=== PATIENT | male | born 1965 | race African-American/Black ===

== ENCOUNTER → 2019-03-21 | Outpatient (CLI) | payer OTHER ==
[~2019-03-21] MED LIST: CIPRO500 MG PO; CLARITIN10 MG PO; FLEXERIL5 MG PO; HYDR25T PO; HYDROCODONE BIT1 T11 PO; LISINOPRIL20 MG PO; MEDROL DOSEPAK4 MG PO; PEN-VK500 MG PO; PERCOCET 325 MG1 TA2 PO; PERCOCET 325 MG1 TA6 PO; PREDNICOT10 MG PO; PREDNICOT20 MG PO; PRINIVIL10 MG PO; SEPTRA DS 800 M1 TAB PO; TRAMADOL HCL50 MG PO; ULTRAM50 MG PO; VICO75300 PO; ZOFRAN ODT4 MG SL; Zofran4 MG PO
[2019-03-21 14:37] LABS: HEMOGLOBIN 13.1 g/dl (14.0-18.0); MEAN CELL VOLUME 95.7 fl (80.0-94.0); MEAN CORPUSCULAR HGB 31.3 pg (27.0-31.0); MEAN CORPUSCULAR HGB CONC 32.8 g/dl (33.0-37.0); RED BLOOD COUNT 4.18 10*6/uL (4.50-5.90)
[2019-03-21 15:15] LABS: ALBUMIN 3.6 gm/dl (3.1-4.5); ALKALINE PHOSPHATASE 86 U/L (45-117); BUN 10 mg/dl (7-24); CHLORIDE 107 mmol/L (98-107); CHOLESTEROL 157 mg/dL (<200); CREATININE 0.91 mg/dL (0.70-1.30); HDL CHOLESTEROL 39 mg/dl (40-60); LDL CHOLESTEROL 91 mg/dL (9-159); POTASSIUM 3.2 mmol/L (3.5-5.1); SGOT/AST 33 IU/L (3-35); SGPT/ALT 62 U/L (12-78); SODIUM 140 mmol/L (136-145); TRIGLYCERIDES 133 mg/dl (<150); VLDL CHOLESTEROL 27 mg/dL (6-40)
== END | disposition home or self-care (01) ==
LOC: LAB 14:18
PROVIDERS: Family Medicine
DX: M47.816 Spondylosis without myelopathy or radiculopathy, lumbar region (principal); E55.9 Vitamin D deficiency, unspecified; E78.00 Pure hypercholesterolemia, unspecified; R53.83 Other fatigue; M19.90 Unspecified osteoarthritis, unspecified site; R63.5 Abnormal weight gain

== ENCOUNTER → 2019-04-03 | Outpatient (CLI) | payer OTHER | END | disposition home or self-care (01) | LOC: RAD 12:58 | DX: M16.0 Bilateral primary osteoarthritis of hip (principal) ==

== ENCOUNTER 2019-11-10 13:14 | Emergency (ER) | payer OTHER ==
[~2019-11-10] VITALS: Ht 193 cm; Wt 142.9 kg
[2019-11-10 13:57] LABS: BASO % 0.4 % (0.0-1.0); EOS # 0.1 10*3/uL (0.0-0.4); EOS % 0.7 % (1.0-4.0); HEMATOCRIT 42.4 % (42.0-52.0); LYMPH # 2.4 10*3/uL (1.3-4.4); MEAN CELL VOLUME 94.2 fl (80.0-94.0); MEAN CORPUSCULAR HGB 31.1 pg (27.0-31.0); MONO # 0.6 10*3/uL (0.1-1.0); MONO % 7.9 % (3.0-9.0); NEUT # 4.1 10*3/uL (2.3-7.9); NEUT % 57.7 % (47.0-73.0); PLATELET COUNT AUTOMATED 295 10*3/uL (130-400); RED CELL DISTRI WIDTH 11.6 % (0-14.5); WHITE BLOOD COUNT 7.2 10*3/uL (4.8-10.8)
[2019-11-10 14:13] LABS: ALBUMIN 3.7 gm/dl (3.1-4.5); ALKALINE PHOSPHATASE 103 U/L (45-117); BUN 9 mg/dl (7-24); CHLORIDE 106 mmol/L (98-107); LIPASE 64 U/L (73-393); POTASSIUM 3.7 mmol/L (3.5-5.1); SGOT/AST 29 IU/L (3-35); SGPT/ALT 57 U/L (12-78); SODIUM 139 mmol/L (136-145); TOTAL PROTEIN 8.1 gm/dL (6.4-8.2); TROPONIN I 0.016 ng/ml (<0.045)
[2019-11-10 14:16] LABS: ACT PARTIAL THROMBO TIME 31.6 SECONDS (20.0-32.1)
== END 2019-11-10 16:52 | disposition short-term general hospital (02) ==
LOC: ED 13:14
PROVIDERS: Emergency Medicine
DX: I63.9 Cerebral infarction, unspecified (principal); I10 Essential (primary) hypertension; M19.90 Unspecified osteoarthritis, unspecified site; Z88.8 Allergy status to other drugs, medicaments and biological substances; Z79.899 Other long term (current) drug therapy

== ENCOUNTER → 2019-12-12 | Outpatient (CLI) | payer OTHER ==
[2019-12-12 13:07] LABS: BASO # 0.1 10*3/uL (0.0-0.1); BASO % 0.6 % (0.0-1.0); EOS # 0.1 10*3/uL (0.0-0.4); EOS % 1.4 % (1.0-4.0); HEMATOCRIT 37.3 % (42.0-52.0); LYMPH # 2.5 10*3/uL (1.3-4.4); LYMPH % 30.9 % (27.0-41.0); MEAN CELL VOLUME 92.6 fl (80.0-94.0); MEAN CORPUSCULAR HGB 31.5 pg (27.0-31.0); MEAN PLATELET VOLUME 9.7 fl (9.6-12.3); MONO # 0.9 10*3/uL (0.1-1.0); MONO % 11.3 % (3.0-9.0); NEUT # 4.4 10*3/uL (2.3-7.9); NEUT % 55.5 % (47.0-73.0); PLATELET COUNT AUTOMATED 293 10*3/uL (130-400); RED BLOOD COUNT 4.03 10*6/uL (4.50-5.90); RED CELL DISTRI WIDTH 11.4 % (0-14.5); WHITE BLOOD COUNT 7.9 10*3/uL (4.8-10.8)
[2019-12-12 13:34] LABS: ALBUMIN 3.5 gm/dl (3.1-4.5); ALKALINE PHOSPHATASE 102 U/L (45-117); BUN 11 mg/dl (7-24); CHLORIDE 102 mmol/L (98-107); CHOLESTEROL 96 mg/dL (<200); CREATININE 0.95 mg/dL (0.70-1.30); HDL CHOLESTEROL 35 mg/dl (40-60); LDL CHOLESTEROL 41 mg/dL (9-159); SGOT/AST 32 IU/L (3-35); SGPT/ALT 65 U/L (12-78); SODIUM 139 mmol/L (136-145); TOTAL PROTEIN 8.3 gm/dL (6.4-8.2); TRIGLYCERIDES 102 mg/dl (<150); VLDL CHOLESTEROL 20 mg/dL (6-40)
== END | disposition home or self-care (01) ==
LOC: LAB 12:49
PROVIDERS: Family Medicine
DX: I63.9 Cerebral infarction, unspecified (principal); E03.9 Hypothyroidism, unspecified; E78.00 Pure hypercholesterolemia, unspecified

== ENCOUNTER → 2020-01-23 | Outpatient (CLI) | payer OTHER ==
[2020-01-23 14:04] LABS: ALBUMIN 3.6 gm/dl (3.1-4.5); ALKALINE PHOSPHATASE 96 U/L (45-117); BUN 9 mg/dl (7-24); CHLORIDE 104 mmol/L (98-107); CHOLESTEROL 92 mg/dL (<200); CPK 173 U/L (39-308); HDL CHOLESTEROL 43 mg/dl (40-60); HEMATOCRIT 37.6 % (42.0-52.0); LDL CHOLESTEROL 34 mg/dL (9-159); MEAN CELL VOLUME 93.1 fl (80.0-94.0); MEAN CORPUSCULAR HGB 30.7 pg (27.0-31.0); MEAN PLATELET VOLUME 10.6 fl (9.6-12.3); RED BLOOD COUNT 4.04 10*6/uL (4.50-5.90); RED CELL DISTRI WIDTH 11.3 % (0-14.5); SGOT/AST 36 IU/L (3-35); SGPT/ALT 51 U/L (12-78); SODIUM 138 mmol/L (136-145); TOTAL PROTEIN 8.4 gm/dL (6.4-8.2); TRIGLYCERIDES 75 mg/dl (<150); VLDL CHOLESTEROL 15 mg/dL (6-40)
[2020-01-23 14:08] LABS: POTASSIUM 3.5 mmol/L (3.5-5.1)
== END | disposition home or self-care (01) ==
LOC: LAB 12:54
PROVIDERS: Family Medicine
DX: E78.00 Pure hypercholesterolemia, unspecified (principal); E55.9 Vitamin D deficiency, unspecified; I10 Essential (primary) hypertension

== ENCOUNTER → 2020-05-09 | Outpatient (CLI) | payer OTHER ==
[~2020-05-09] MED LIST changes: +CYCLOBENZAPRINE5 M3 PO
[2020-05-09 11:54] LABS: HEMATOCRIT 41.8 % (42.0-52.0); MEAN CELL VOLUME 94.6 fl (80.0-94.0); MEAN CORPUSCULAR HGB CONC 32.8 g/dl (33.0-37.0); MEAN PLATELET VOLUME 9.7 fl (9.6-12.3); RED BLOOD COUNT 4.42 10*6/uL (4.50-5.90); RED CELL DISTRI WIDTH 11.4 % (0-14.5); WHITE BLOOD COUNT 6.5 10*3/uL (4.8-10.8)
[2020-05-09 12:08] LABS: ALBUMIN 3.7 gm/dl (3.1-4.5); ALKALINE PHOSPHATASE 75 U/L (45-117); BUN 8 mg/dl (7-24); CHLORIDE 104 mmol/L (98-107); CHOLESTEROL 109 mg/dL (<200); HDL CHOLESTEROL 47 mg/dl (40-60); LDL CHOLESTEROL 38 mg/dL (9-159); POTASSIUM 3.2 mmol/L (3.5-5.1); SGOT/AST 27 IU/L (3-35); SGPT/ALT 45 U/L (12-78); SODIUM 140 mmol/L (136-145); TRIGLYCERIDES 122 mg/dl (<150); VLDL CHOLESTEROL 24 mg/dL (6-40)
== END | disposition home or self-care (01) ==
LOC: LAB 11:32
PROVIDERS: ATTEND Family Medicine
DX: E55.9 Vitamin D deficiency, unspecified (principal); I10 Essential (primary) hypertension; R53.83 Other fatigue; Z79.899 Other long term (current) drug therapy

== ENCOUNTER → 2020-05-31 | Outpatient (CLI) | payer OTHER | END | disposition home or self-care (01) | LOC: LAB 14:22 | PROVIDERS: ATTEND Family Medicine | DX: K52.9 Noninfective gastroenteritis and colitis, unspecified (principal) ==

== ENCOUNTER → 2020-06-07 | Outpatient (CLI) | payer OTHER | END | disposition home or self-care (01) | LOC: RAD 11:51 | PROVIDERS: ATTEND Family Medicine | DX: M19.011 Primary osteoarthritis, right shoulder (principal); M47.812 Spondylosis without myelopathy or radiculopathy, cervical region ==

== ENCOUNTER → 2020-06-14 | Outpatient (CLI) | payer OTHER ==
[2020-06-14 11:50] LABS: BASO % 0.5 % (0.0-1.0); EOS # 0.1 10*3/uL (0.0-0.4); EOS % 1.6 % (1.0-4.0); HEMATOCRIT 41.3 % (42.0-52.0); LYMPH # 2.6 10*3/uL (1.3-4.4); LYMPH % 41.1 % (27.0-41.0); MEAN CELL VOLUME 95.8 fl (80.0-94.0); MEAN CORPUSCULAR HGB 31.6 pg (27.0-31.0); MEAN CORPUSCULAR HGB CONC 32.9 g/dl (33.0-37.0); MEAN PLATELET VOLUME 9.9 fl (9.6-12.3); MONO # 0.5 10*3/uL (0.1-1.0); MONO % 7.4 % (3.0-9.0); NEUT # 3.1 10*3/uL (2.3-7.9); NEUT % 49.1 % (47.0-73.0); PLATELET COUNT AUTOMATED 287 10*3/uL (130-400); RED BLOOD COUNT 4.31 10*6/uL (4.50-5.90); RED CELL DISTRI WIDTH 11.4 % (0-14.5); WHITE BLOOD COUNT 6.3 10*3/uL (4.8-10.8)
[2020-06-15 07:06] LABS: RHEUMATOID ARTHRITIS FACTOR <10.0 IU/mL (0.0-13.9)
[2020-06-15 08:08] LABS: HEP B CORE AB, IGM Negative (Negative); HEPATITIS B SURFACE AG Negative (Negative)
[2020-06-15 13:09] LABS: ANTI-RNP ANTIBODIES <0.2 AI (0.0-0.9)
[2020-06-15 22:10] LABS: CCP ANTIBODIES IGG/IGA 9 units (0-19)
[2020-06-16 10:01] LABS: HEPATITIS C VIRUS ANTIBODY >11.0 s/co (0.0-0.9)
[2020-06-17 08:08] LABS: DVVTMIXRFX CHG; LUPUS DRVVT 47.2 sec (0.0-47.0)
[2020-06-17 09:10] LABS: LUPUS REFLEX INTERPRETATION Comment: (.)
[2020-06-23 19:07] LABS: HLA-B27 ANTIGEN Negative (.)
== END | disposition home or self-care (01) ==
LOC: LAB 11:29
PROVIDERS: ATTEND Orthopaedic Surgery
DX: M16.0 Bilateral primary osteoarthritis of hip (principal); Z86.73 Personal history of transient ischemic attack (TIA), and cerebral infarction without residual deficits

== ENCOUNTER → 2020-07-01 | Outpatient (CLI) | payer OTHER ==
[2020-07-02 13:06] LABS: ANTI-DSDNA ANTIBODIES 3 IU/mL (0-9)
[2020-07-02 21:06] LABS: HEPATITIS C QUANTITATION 784000 IU/mL (.)
== END | disposition home or self-care (01) ==
LOC: LAB 12:18
PROVIDERS: ATTEND Family Medicine
DX: B18.2 Chronic viral hepatitis C (principal); R76.0 Raised antibody titer; Z72.51 High risk heterosexual behavior

== ENCOUNTER → 2020-07-17 | Outpatient (CLI) | payer OTHER | END | disposition home or self-care (01) | LOC: LAB 12:59 | PROVIDERS: ATTEND Family Medicine | DX: B19.20 Unspecified viral hepatitis C without hepatic coma (principal) ==

== ENCOUNTER 2020-07-21 16:26 | Emergency (ER) | payer OTHER ==
[~2020-07-21] VITALS: Wt 163.3 kg
[~2020-07-21 16:26] MED LIST changes: -CYCLOBENZAPRINE5 M3 PO
[2020-07-21] MEDS ORDERED: MEDROL DOSEPAK4 MG PO (19:07)
[2020-07-21] MEDS ORDERED: CYCLOBENZAPRINE5 M3 PO (19:07)
== END 2020-07-21 19:12 | disposition home or self-care (01) ==
LOC: ED 16:26
DX: M54.2 Cervicalgia (principal); I10 Essential (primary) hypertension; Z88.6 Allergy status to analgesic agent; Z79.899 Other long term (current) drug therapy; Z87.891 Personal history of nicotine dependence; V43.62XA Car passenger injured in collision with other type car in traffic accident, initial encounter; Y93.89 Activity, other specified; Y92.89 Other specified places as the place of occurrence of the external cause; Y99.8 Other external cause status

== ENCOUNTER → 2020-08-19 | Outpatient (CLI) | payer OTHER ==
[~2020-08-19] MED LIST changes: +CYCLOBENZAPRINE5 M3 PO; +ZOFRAN4 MG PO
[2020-08-19 13:22] LABS: BASO % 0.4 % (0.0-1.0); EOS # 0.1 10*3/uL (0.0-0.4); EOS % 1.6 % (1.0-4.0); HEMATOCRIT 43.4 % (42.0-52.0); LYMPH # 2.9 10*3/uL (1.3-4.4); LYMPH % 38.5 % (27.0-41.0); MEAN CORPUSCULAR HGB 32.3 pg (27.0-31.0); MEAN CORPUSCULAR HGB CONC 32.9 g/dl (33.0-37.0); MEAN PLATELET VOLUME 9.7 fl (9.6-12.3); MONO # 0.7 10*3/uL (0.1-1.0); MONO % 8.8 % (3.0-9.0); NEUT # 3.9 10*3/uL (2.3-7.9); NEUT % 50.6 % (47.0-73.0); PLATELET COUNT AUTOMATED 282 10*3/uL (130-400); RED BLOOD COUNT 4.43 10*6/uL (4.50-5.90); RED CELL DISTRI WIDTH 11.2 % (0-14.5); WHITE BLOOD COUNT 7.6 10*3/uL (4.8-10.8)
[2020-08-19 13:53] LABS: ALBUMIN 3.6 gm/dl (3.1-4.5); BILIRUBIN, DIRECT 0.2 mg/dL (0.0-0.2); TOTAL PROTEIN 7.7 gm/dL (6.4-8.2)
[2020-08-20 09:07] LABS: HEPATITIS A AB, TOTAL Positive (Negative); HEPATITIS B SURFACE AB Non Reactive (.); HEPATITIS B SURFACE AG Negative (Negative)
[2020-08-20 22:06] LABS: HCV LOG10 5.803 (.); HEPATITIS C QNT 635000 IU/mL (.)
== END | disposition home or self-care (01) ==
LOC: LAB 12:56
PROVIDERS: ATTEND Internal Medicine Gastroenterology
DX: R76.8 Other specified abnormal immunological findings in serum (principal)

== ENCOUNTER → 2020-09-07 | Outpatient (CLI) | payer OTHER ==
[2020-09-07 12:39] LABS: BILIRUBIN Negative (Negative); BLOOD Negative (Negative); CLARITY Clear (Clear); COLOR Yellow (Yellow); GLUCOSE Negative (Negative); KETONE Negative (Negative); LEUKO ESTERASE 1+ (Negative); NITRITE Negative (Negative); PH 5.5 (4.5-8.0)
[2020-09-07 12:43] LABS: BASO # 0.1 10*3/uL (0.0-0.1); BASO % 0.6 % (0.0-1.0); EOS # 0.1 10*3/uL (0.0-0.4); EOS % 0.9 % (1.0-4.0); LYMPH # 3.2 10*3/uL (1.3-4.4); LYMPH % 41.7 % (27.0-41.0); MEAN CELL VOLUME 98.6 fl (80.0-94.0); MEAN CORPUSCULAR HGB 32.6 pg (27.0-31.0); MEAN PLATELET VOLUME 10.2 fl (9.6-12.3); MONO # 0.6 10*3/uL (0.1-1.0); MONO % 7.7 % (3.0-9.0); NEUT # 3.8 10*3/uL (2.3-7.9); NEUT % 48.8 % (47.0-73.0); PLATELET COUNT AUTOMATED 294 10*3/uL (130-400); RED BLOOD COUNT 4.36 10*6/uL (4.50-5.90); RED CELL DISTRI WIDTH 11.4 % (0-14.5); WHITE BLOOD COUNT 7.7 10*3/uL (4.8-10.8)
[2020-09-07 13:06] LABS: ALBUMIN 3.9 gm/dl (3.1-4.5); ALKALINE PHOSPHATASE 77 U/L (45-117); BUN 10 mg/dl (7-24); CHLORIDE 107 mmol/L (98-107); CREATININE 0.86 mg/dL (0.70-1.30); POTASSIUM 3.6 mmol/L (3.5-5.1); SGOT/AST 37 IU/L (3-35); SGPT/ALT 64 U/L (12-78); SODIUM 143 mmol/L (136-145)
[2020-09-07 13:14] LABS: BACTERIA TRACE
[2020-09-07 13:40] LABS: ACT PARTIAL THROMBO TIME 27.6 SECONDS (20.0-32.1)
== END | disposition home or self-care (01) ==
LOC: LAB 12:15
PROVIDERS: ATTEND Orthopaedic Surgery
DX: Z01.818 Encounter for other preprocedural examination (principal); F32.9 Major depressive disorder, single episode, unspecified; M19.90 Unspecified osteoarthritis, unspecified site; M25.78 Osteophyte, vertebrae; I10 Essential (primary) hypertension; Z79.899 Other long term (current) drug therapy; Z86.73 Personal history of transient ischemic attack (TIA), and cerebral infarction without residual deficits

== ENCOUNTER 2020-10-30 20:39 | Emergency (ER) | payer OTHER ==
[~2020-10-30] VITALS: Ht 193 cm; Wt 136.1 kg
[~2020-10-30 20:39] MED LIST changes: -ZOFRAN4 MG PO
[2020-10-30] MEDS ORDERED: ZOFRAN4 MG PO (21:47)
== END 2020-10-30 22:04 | disposition home or self-care (01) ==
LOC: ED 20:39
DX: F11.23 Opioid dependence with withdrawal (principal); I10 Essential (primary) hypertension; Z88.8 Allergy status to other drugs, medicaments and biological substances; Z79.899 Other long term (current) drug therapy; Z98.890 Other specified postprocedural states

== ENCOUNTER → 2020-12-17 | Outpatient (CLI) | payer MEDICAID ==
[~2020-12-17] MED LIST changes: +ZOFRAN4 MG PO
[2020-12-17 10:34] LABS: HEMATOCRIT 38.3 % (42.0-52.0); MEAN CELL VOLUME 92.7 fl (80.0-94.0); MEAN CORPUSCULAR HGB 29.8 pg (27.0-31.0); MEAN CORPUSCULAR HGB CONC 32.1 g/dl (33.0-37.0); MEAN PLATELET VOLUME 10.2 fl (9.6-12.3); RED BLOOD COUNT 4.13 10*6/uL (4.50-5.90); RED CELL DISTRI WIDTH 12.6 % (0-14.5); WHITE BLOOD COUNT 6.3 10*3/uL (4.8-10.8)
[2020-12-17 11:15] LABS: ALBUMIN 3.4 gm/dl (3.1-4.5); ALKALINE PHOSPHATASE 97 U/L (45-117); BUN 9 mg/dl (7-24); CHLORIDE 103 mmol/L (98-107); CHOLESTEROL 93 mg/dL (<200); CREATININE 0.85 mg/dL (0.70-1.30); LDL CHOLESTEROL 40 mg/dL (9-159); POTASSIUM 3.3 mmol/L (3.5-5.1); SGOT/AST 34 IU/L (3-35); SGPT/ALT 55 U/L (12-78); SODIUM 139 mmol/L (136-145); TOTAL PROTEIN 7.9 gm/dL (6.4-8.2); TRIGLYCERIDES 79 mg/dl (<150)
== END | disposition home or self-care (01) ==
LOC: LAB 09:33
PROVIDERS: ATTEND Nurse Practitioner Family
DX: Z12.5 Encounter for screening for malignant neoplasm of prostate (principal); I10 Essential (primary) hypertension; E55.9 Vitamin D deficiency, unspecified; E78.00 Pure hypercholesterolemia, unspecified; Z79.899 Other long term (current) drug therapy

== ENCOUNTER → 2021-04-09 | Outpatient (CLI) | payer MEDICAID ==
[2021-04-09 12:52] LABS: HEMATOCRIT 42.2 % (42.0-52.0); MEAN CELL VOLUME 96.3 fl (80.0-94.0); MEAN CORPUSCULAR HGB 30.6 pg (27.0-31.0); MEAN CORPUSCULAR HGB CONC 31.8 g/dl (33.0-37.0); RED BLOOD COUNT 4.38 10*6/uL (4.50-5.90); WHITE BLOOD COUNT 5.9 10*3/uL (4.8-10.8)
[2021-04-09 13:10] LABS: ALBUMIN 3.5 gm/dl (3.1-4.5); ALKALINE PHOSPHATASE 87 U/L (45-117); BUN 9 mg/dl (7-24); CHLORIDE 104 mmol/L (98-107); CREATININE 0.76 mg/dL (0.70-1.30); POTASSIUM 3.5 mmol/L (3.5-5.1); SGOT/AST 30 IU/L (3-35); SGPT/ALT 45 U/L (12-78); SODIUM 141 mmol/L (136-145); TOTAL PROTEIN 8.4 gm/dL (6.4-8.2)
== END | disposition home or self-care (01) ==
LOC: LAB 11:45
PROVIDERS: ATTEND Family Medicine
DX: I63.9 Cerebral infarction, unspecified (principal)

== ENCOUNTER → 2021-07-04 | Outpatient (CLI) | payer MEDICAID ==
[2021-07-04 14:48] LABS: HEMATOCRIT 38.3 % (42.0-52.0); MEAN CELL VOLUME 94.3 fl (80.0-94.0); MEAN CORPUSCULAR HGB CONC 32.9 g/dl (33.0-37.0); MEAN PLATELET VOLUME 9.7 fl (9.6-12.3); RED BLOOD COUNT 4.06 10*6/uL (4.50-5.90); RED CELL DISTRI WIDTH 11.4 % (0-14.5); WHITE BLOOD COUNT 8.1 10*3/uL (4.8-10.8)
[2021-07-04 15:12] LABS: ALBUMIN 3.3 gm/dl (3.1-4.5); ALKALINE PHOSPHATASE 99 U/L (45-117); BUN 11 mg/dl (7-24); CHLORIDE 103 mmol/L (98-107); CHOLESTEROL 106 mg/dL (<200); CREATININE 0.99 mg/dL (0.70-1.30); LDL CHOLESTEROL 37 mg/dL (9-159); POTASSIUM 3.6 mmol/L (3.5-5.1); SGOT/AST 18 IU/L (3-35); SGPT/ALT 23 U/L (12-78); SODIUM 137 mmol/L (136-145); TOTAL PROTEIN 8.2 gm/dL (6.4-8.2); TRIGLYCERIDES 146 mg/dl (<150)
== END | disposition home or self-care (01) ==
LOC: LAB 14:31
PROVIDERS: ATTEND Family Medicine
DX: E78.00 Pure hypercholesterolemia, unspecified (principal); E74.9 Disorder of carbohydrate metabolism, unspecified; Z79.899 Other long term (current) drug therapy

== ENCOUNTER → 2021-10-03 | Outpatient (CLI) | payer MEDICAID ==
[2021-10-03 13:09] LABS: HEMATOCRIT 42.1 % (42.0-52.0); MEAN CELL VOLUME 96.1 fl (80.0-94.0); MEAN CORPUSCULAR HGB 30.6 pg (27.0-31.0); MEAN CORPUSCULAR HGB CONC 31.8 g/dl (33.0-37.0); MEAN PLATELET VOLUME 9.7 fl (9.6-12.3); RED BLOOD COUNT 4.38 10*6/uL (4.50-5.90); RED CELL DISTRI WIDTH 11.6 % (0-14.5); WHITE BLOOD COUNT 7.4 10*3/uL (4.8-10.8)
[2021-10-03 13:28] LABS: BUN 10 mg/dl (7-24); CHLORIDE 107 mmol/L (98-107); POTASSIUM 3.7 mmol/L (3.5-5.1); SODIUM 140 mmol/L (136-145)
[2021-10-03 13:31] LABS: ALKALINE PHOSPHATASE 80 U/L (45-117); CHOLESTEROL 167 mg/dL (<200); CPK 131 U/L (39-308); CREATININE 0.93 mg/dL (0.70-1.30); LDL CHOLESTEROL 96 mg/dL (9-159); SGOT/AST 11 IU/L (3-35); SGPT/ALT 24 U/L (12-78); TOTAL PROTEIN 8.3 gm/dL (6.4-8.2); TRIGLYCERIDES 148 mg/dl (<150)
== END | disposition home or self-care (01) ==
LOC: LAB 12:34
PROVIDERS: ATTEND Family Medicine
DX: I10 Essential (primary) hypertension (principal); E55.9 Vitamin D deficiency, unspecified; E78.00 Pure hypercholesterolemia, unspecified; E74.9 Disorder of carbohydrate metabolism, unspecified; E87.6 Hypokalemia

== ENCOUNTER 2021-11-01 14:40 | Emergency (ER) | payer MEDICAID ==
[~2021-11-01] VITALS: Ht 193 cm; Wt 145.1 kg
[2021-11-01] MEDS ORDERED: ASPIRIN ADULT L81 M2 PO (15:00)
[2021-11-01] MEDS ORDERED: TRAZODONE50 MG PO (15:00)
[2021-11-01] MEDS ORDERED: METOPROLOL SUCC25 M2 PO (15:01)
[2021-11-01] MEDS ORDERED: FLUOXETINE HYDR20 M1 PO (15:01)
[2021-11-01 15:52] LABS: BASO # 0.1 10*3/uL (0.0-0.1); BASO % 0.6 % (0.0-1.0); EOS # 0.2 10*3/uL (0.0-0.4); EOS % 2.4 % (1.0-4.0); HEMATOCRIT 41.1 % (42.0-52.0); LYMPH # 3.8 10*3/uL (1.3-4.4); LYMPH % 44.7 % (27.0-41.0); MEAN CELL VOLUME 95.8 fl (80.0-94.0); MEAN CORPUSCULAR HGB 30.5 pg (27.0-31.0); MEAN CORPUSCULAR HGB CONC 31.9 g/dl (33.0-37.0); MEAN PLATELET VOLUME 9.8 fl (9.6-12.3); MONO # 0.7 10*3/uL (0.1-1.0); MONO % 7.8 % (3.0-9.0); NEUT # 3.7 10*3/uL (2.3-7.9); NEUT % 44.3 % (47.0-73.0); PLATELET COUNT AUTOMATED 304 10*3/uL (130-400); RED BLOOD COUNT 4.29 10*6/uL (4.50-5.90); RED CELL DISTRI WIDTH 11.7 % (0-14.5); WHITE BLOOD COUNT 8.4 10*3/uL (4.8-10.8)
[2021-11-01 16:07] LABS: ALKALINE PHOSPHATASE 85 U/L (45-117); BUN 12 mg/dl (7-24); CHLORIDE 106 mmol/L (98-107); CREATININE 0.98 mg/dL (0.70-1.30); POTASSIUM 3.6 mmol/L (3.5-5.1); SGOT/AST 13 IU/L (3-35); SGPT/ALT 28 U/L (12-78); SODIUM 141 mmol/L (136-145); TOTAL PROTEIN 8.2 gm/dL (6.4-8.2)
[2021-11-01 22:56] LABS: BILIRUBIN Negative (Negative); BLOOD Negative (Negative); CLARITY Clear (Clear); COLOR Yellow (Yellow); GLUCOSE Negative (Negative); KETONE Negative (Negative); LEUKO ESTERASE Negative (Negative); NITRITE Negative (Negative); SPECIFIC GRAVITY >= 1.030 (1.001-1.030)
[2021-11-01 23:05] LABS: EPITHELIAL CELLS 0-2; RBC 0-2 rbc/hpf (0-2); URINE AMPHETAMINES < 1000 (1000ng/ml); URINE BARBITURATES < 200 (200ng/ml); URINE BENZODIAZEPINES < 200 (200ng/ml); URINE CANNABINOIDS (THC) < 50 (50ng/ml); URINE COCAINE < 300 (300ng/ml); URINE METHADONE < 300 (300ng/ml); URINE OPIATES > 300 (300ng/ml); WBC 0-2 wbc/hpf (0-5)
[2021-11-01 23:06] LABS: URINE PHENCYCLIDINE < 25 (25ng/ml)
[2021-11-01] MEDS ORDERED: HYDROCODONE-AC1 EACH PO (23:31)
== END 2021-11-02 11:47 | disposition left against medical advice (07) ==
LOC: ED 14:40
PROVIDERS: Emergency Medicine; Nurse Practitioner Family
DX: M79.89 Other specified soft tissue disorders (principal); Z88.6 Allergy status to analgesic agent; Z79.899 Other long term (current) drug therapy; Z79.82 Long term (current) use of aspirin; F17.200 Nicotine dependence, unspecified, uncomplicated; Z98.890 Other specified postprocedural states

== ENCOUNTER → 2021-12-09 | Outpatient (CLI) | payer MEDICAID ==
[~2021-12-09] MED LIST changes: +ASPIRIN ADULT L81 M2 PO; +FLUOXETINE HYDR20 M1 PO; +HYDROCODONE-AC1 EACH PO; +METOPROLOL SUCC25 M2 PO; +TRAZODONE50 MG PO
[2021-12-09 16:03] LABS: HEMATOCRIT 39.9 % (42.0-52.0); MEAN CELL VOLUME 94.5 fl (80.0-94.0); MEAN CORPUSCULAR HGB 30.6 pg (27.0-31.0); MEAN CORPUSCULAR HGB CONC 32.3 g/dl (33.0-37.0); MEAN PLATELET VOLUME 9.9 fl (9.6-12.3); RED BLOOD COUNT 4.22 10*6/uL (4.50-5.90); RED CELL DISTRI WIDTH 11.7 % (0-14.5); WHITE BLOOD COUNT 8.8 10*3/uL (4.8-10.8)
[2021-12-09 16:18] LABS: ALKALINE PHOSPHATASE 86 U/L (45-117); BUN 13 mg/dl (7-24); CHLORIDE 107 mmol/L (98-107); POTASSIUM 4.2 mmol/L (3.5-5.1); SGOT/AST 17 IU/L (3-35); SGPT/ALT 27 U/L (12-78); SODIUM 138 mmol/L (136-145); TOTAL PROTEIN 8.1 gm/dL (6.4-8.2)
== END | disposition home or self-care (01) ==
LOC: LAB 15:36
PROVIDERS: ATTEND Family Medicine
DX: E87.6 Hypokalemia (principal); R60.9 Edema, unspecified

== ENCOUNTER → 2022-03-23 | Outpatient (CLI) | payer MEDICAID ==
[2022-03-23 17:47] LABS: HEMATOCRIT 40.4 % (42.0-52.0); MEAN CELL VOLUME 96.2 fl (80.0-94.0); MEAN CORPUSCULAR HGB 30.7 pg (27.0-31.0); MEAN CORPUSCULAR HGB CONC 31.9 g/dl (33.0-37.0); MEAN PLATELET VOLUME 10.5 fl (9.6-12.3); RED BLOOD COUNT 4.2 10*6/uL (4.50-5.90); WHITE BLOOD COUNT 8.7 10*3/uL (4.8-10.8)
[2022-03-23 18:20] LABS: ALKALINE PHOSPHATASE 92 U/L (45-117); BUN 13 mg/dl (7-24); CHLORIDE 107 mmol/L (98-107); CREATININE 0.96 mg/dL (0.70-1.30); POTASSIUM 3.8 mmol/L (3.5-5.1); SGOT/AST 14 IU/L (3-35); SGPT/ALT 27 U/L (12-78); SODIUM 139 mmol/L (136-145); TOTAL PROTEIN 8.2 gm/dL (6.4-8.2)
== END | disposition home or self-care (01) ==
LOC: LAB 16:26
PROVIDERS: Family Medicine; ATTEND Student in an Organized Health Care Education/Training Program
DX: M25.861 Other specified joint disorders, right knee (principal); M25.862 Other specified joint disorders, left knee; M25.761 Osteophyte, right knee; M25.762 Osteophyte, left knee; M47.812 Spondylosis without myelopathy or radiculopathy, cervical region; M48.02 Spinal stenosis, cervical region

== ENCOUNTER → 2022-11-20 | Outpatient (CLI) | payer MEDICAID ==
[2022-11-20 16:42] LABS: HEMATOCRIT 36.5 % (42.0-52.0); MEAN CELL VOLUME 95.1 fl (80.0-94.0); MEAN CORPUSCULAR HGB 30.5 pg (27.0-31.0); MEAN CORPUSCULAR HGB CONC 32.1 g/dl (33.0-37.0); MEAN PLATELET VOLUME 9.8 fl (9.6-12.3); RED BLOOD COUNT 3.84 10*6/uL (4.50-5.90); RED CELL DISTRI WIDTH 11.9 % (0-14.5); WHITE BLOOD COUNT 7.7 10*3/uL (4.8-10.8)
[2022-11-20 17:14] LABS: ALKALINE PHOSPHATASE 82 U/L (46-116); BUN 14 mg/dl (9-23); CHLORIDE 100 mmol/L (98-107); CHOLESTEROL 93 mg/dL (<200); CPK 195 U/L (34-171); LDL CHOLESTEROL 39 mg/dL (9-159); POTASSIUM 3.6 mmol/L (3.4-5.1); SGPT/ALT 19 U/L (10-49); TOTAL PROTEIN 7.8 gm/dL (6.0-8.0); TRIGLYCERIDES 138 mg/dl (<150)
== END | disposition home or self-care (01) ==
LOC: LAB 16:08
PROVIDERS: ATTEND Family Medicine
DX: I63.9 Cerebral infarction, unspecified (principal); I10 Essential (primary) hypertension; G47.00 Insomnia, unspecified; E78.00 Pure hypercholesterolemia, unspecified

== ENCOUNTER → 2023-02-19 | Outpatient (CLI) | payer MEDICAID ==
[2023-02-19 17:49] LABS: ALKALINE PHOSPHATASE 92 U/L (46-116); BUN 11 mg/dl (9-23); CHLORIDE 98 mmol/L (98-107); CHOLESTEROL 102 mg/dL (<200); CPK 158 U/L (34-171); LDL CHOLESTEROL 31 mg/dL (9-159); POTASSIUM 3.2 mmol/L (3.4-5.1); SGPT/ALT 24 U/L (10-49); TOTAL PROTEIN 8.1 gm/dL (6.0-8.0); TRIGLYCERIDES 193 mg/dl (<150)
== END | disposition home or self-care (01) ==
LOC: LAB 17:06
PROVIDERS: ATTEND Family Medicine
DX: E78.00 Pure hypercholesterolemia, unspecified (principal); I10 Essential (primary) hypertension; I63.9 Cerebral infarction, unspecified

== ENCOUNTER → 2023-05-29 | Outpatient (CLI) | payer MEDICAID ==
[2023-05-29 14:47] LABS: BASO % 0.5 % (0.0-1.0); EOS # 0.1 10*3/uL (0.0-0.4); EOS % 1.8 % (1.0-4.0); HEMATOCRIT 39.8 % (42.0-52.0); LYMPH # 2.8 10*3/uL (1.3-4.4); LYMPH % 35.1 % (27.0-41.0); MEAN CELL VOLUME 96.4 fl (80.0-94.0); MEAN CORPUSCULAR HGB 30.8 pg (27.0-31.0); MEAN CORPUSCULAR HGB CONC 31.9 g/dl (33.0-37.0); MEAN PLATELET VOLUME 9.5 fl (9.6-12.3); MONO # 0.7 10*3/uL (0.1-1.0); MONO % 8.8 % (3.0-9.0); NEUT # 4.2 10*3/uL (2.3-7.9); NEUT % 53.5 % (47.0-73.0); PLATELET COUNT AUTOMATED 333 10*3/uL (130-400); RED BLOOD COUNT 4.13 10*6/uL (4.50-5.90); RED CELL DISTRI WIDTH 12.7 % (0-14.5); WHITE BLOOD COUNT 7.9 10*3/uL (4.8-10.8)
[2023-05-29 15:11] LABS: ALKALINE PHOSPHATASE 79 U/L (46-116); BUN 6 mg/dl (9-23); CHLORIDE 107 mmol/L (98-107); CHOLESTEROL 143 mg/dL (<200); LDL CHOLESTEROL 88 mg/dL (9-159); POTASSIUM 3.6 mmol/L (3.4-5.1); SGPT/ALT 25 U/L (5-49); TOTAL PROTEIN 7.4 gm/dL (6.0-8.0); TRIGLYCERIDES 114 mg/dl (<150)
== END | disposition home or self-care (01) ==
LOC: LAB 12:58 → US 13:00
PROVIDERS: ATTEND Nurse Practitioner Family
DX: I10 Essential (primary) hypertension (principal); R60.9 Edema, unspecified; E78.2 Mixed hyperlipidemia; Z86.73 Personal history of transient ischemic attack (TIA), and cerebral infarction without residual deficits

== ENCOUNTER → 2023-09-19 | Outpatient (CLI) | payer MEDICAID ==
[2023-09-19 11:24] LABS: HEMATOCRIT 39.4 % (42.0-52.0); MEAN CELL VOLUME 92.5 fl (80.0-94.0); MEAN CORPUSCULAR HGB 29.6 pg (27.0-31.0); MEAN PLATELET VOLUME 9.6 fl (9.6-12.3); RED BLOOD COUNT 4.26 10*6/uL (4.50-5.90); RED CELL DISTRI WIDTH 12.2 % (0-14.5); WHITE BLOOD COUNT 8.4 10*3/uL (4.8-10.8)
[2023-09-19 11:48] LABS: ALKALINE PHOSPHATASE 89 U/L (46-116); BUN 5 mg/dl (9-23); CHLORIDE 101 mmol/L (98-107); CHOLESTEROL 97 mg/dL (<200); CPK 141 U/L (34-171); LDL CHOLESTEROL 48 mg/dL (9-159); POTASSIUM 2.9 mmol/L (3.4-5.1); SGPT/ALT 20 U/L (5-49); TRIGLYCERIDES 95 mg/dl (<150)
== END | disposition home or self-care (01) ==
LOC: LAB 10:48
PROVIDERS: ATTEND Family Medicine
DX: E78.00 Pure hypercholesterolemia, unspecified (principal); I10 Essential (primary) hypertension; E74.9 Disorder of carbohydrate metabolism, unspecified; I63.9 Cerebral infarction, unspecified; Z79.899 Other long term (current) drug therapy

== ENCOUNTER → 2023-12-21 | Outpatient (CLI) | payer MEDICAID ==
[2023-12-21 10:34] LABS: HEMATOCRIT 40.3 % (42.0-52.0); MEAN CELL VOLUME 92.6 fl (80.0-94.0); MEAN CORPUSCULAR HGB 29.4 pg (27.0-31.0); MEAN CORPUSCULAR HGB CONC 31.8 g/dl (33.0-37.0); RED BLOOD COUNT 4.35 10*6/uL (4.50-5.90); RED CELL DISTRI WIDTH 12.4 % (0-14.5); WHITE BLOOD COUNT 5.9 10*3/uL (4.8-10.8)
[2023-12-21 11:20] LABS: ALKALINE PHOSPHATASE 107 U/L (46-116); BUN 6 mg/dl (9-23); CHLORIDE 101 mmol/L (98-107); CHOLESTEROL 113 mg/dL (<200); CPK 145 U/L (34-171); LDL CHOLESTEROL 57 mg/dL (9-159); POTASSIUM 3.1 mmol/L (3.4-5.1); SGPT/ALT 20 U/L (5-49); TRIGLYCERIDES 109 mg/dl (<150)
[2023-12-21 11:25] LABS: VITAMIN D, 25-HYDROXY 24.9 ng/mL (30-100)
== END | disposition home or self-care (01) ==
LOC: LAB 10:18
PROVIDERS: ATTEND Family Medicine
DX: I10 Essential (primary) hypertension (principal); E11.9 Type 2 diabetes mellitus without complications; E78.00 Pure hypercholesterolemia, unspecified; K21.9 Gastro-esophageal reflux disease without esophagitis; E55.9 Vitamin D deficiency, unspecified; R53.83 Other fatigue

== ENCOUNTER 2023-12-28 10:45 | Emergency (ER) | payer MEDICAID ==
[~2023-12-28] VITALS: Ht 193 cm; Wt 136.1 kg
[2023-12-28] MEDS ORDERED: SODIUM CHLORIDE 0.9% 1,000 ML IV ONE ×2 (10:50→13:38)
[2023-12-28] MEDS ORDERED: diphenhydrAMINE hydrochloride 50 MG/ML VIAL IV ONE (10:50)
[2023-12-28] MEDS ORDERED: Metoclopramide Hydrochloride 10 MG/2 ML AMP IV ONE (10:50)
[2023-12-28 11:18] LABS: HEMATOCRIT 37.2 % (42.0-52.0); MEAN CELL VOLUME 92.3 fl (80.0-94.0); MEAN CORPUSCULAR HGB 29.3 pg (27.0-31.0); MEAN CORPUSCULAR HGB CONC 31.7 g/dl (33.0-37.0); MEAN PLATELET VOLUME 9.4 fl (9.6-12.3); PLATELET COUNT AUTOMATED 307 10*3/uL (130-400); RED BLOOD COUNT 4.03 10*6/uL (4.50-5.90); RED CELL DISTRI WIDTH 12.4 % (0-14.5); WHITE BLOOD COUNT 18.7 10*3/uL (4.8-10.8)
[2023-12-28 11:19] LABS: MANUAL DIFF REFLEX YES
[2023-12-28 11:38] LABS: BASOPHILS 2 % (0-1); TOTAL CELLS COUNTED 100 #CELLS
[2023-12-28 11:40] LABS: ALKALINE PHOSPHATASE 99 U/L (46-116); BUN 9 mg/dl (9-23); CHLORIDE 99 mmol/L (98-107); LIPASE 24 U/L (12-53); PLATELET SUFFICIENCY NORMAL (NORMAL); POTASSIUM 2.8 mmol/L (3.4-5.1); SGPT/ALT 21 U/L (5-49); TOTAL PROTEIN 8.1 gm/dL (6.0-8.0)
[2023-12-28 11:41] LABS: POLYCHROMASIA SLIGHT
[2023-12-28 11:53] LABS: ETHYL ALCOHOL < 3.0 mg/dl (<3)
[2023-12-28] MEDS ORDERED: POTASSIUM CHLORIDE IN WATER 100 ML IV SCH (12:00)
[2023-12-28] MEDS ORDERED: IOHEXOL 300 MG/ML 100 ML VIAL IV ONE (12:05)
[2023-12-28 15:32] LABS: BILIRUBIN Negative (Negative); BLOOD Negative (Negative); CLARITY Clear (Clear); COLOR Yellow (Yellow); GLUCOSE Negative (Negative); KETONE Negative (Negative); LEUKO ESTERASE 2+ (Negative); NITRITE Negative (Negative); PH 5.5 (4.5-8.0); SPECIFIC GRAVITY 1.015 (1.001-1.030); UROBILINOGEN 0.2 E.U./dl (0.0-1.0)
[2023-12-28 15:43] LABS: URINE AMPHETAMINES Negative (1000ng/ml); URINE BARBITURATES Negative (200ng/ml); URINE BENZODIAZEPINES Negative (200ng/ml); URINE CANNABINOIDS (THC) Negative (50ng/ml); URINE COCAINE Positive (300ng/ml); URINE METHADONE Negative (300ng/ml); URINE OPIATES Negative (300ng/ml); URINE PHENCYCLIDINE Negative (25ng/ml)
[2023-12-28 15:44] LABS: BACTERIA TRACE; EPITHELIAL CELLS 0-2; WBC 16-20 wbc/hpf (0-5)
[2023-12-28] MEDS ORDERED: ANTI-DIARRHEAL2 MG PO (16:05)
[2023-12-28] MEDS ORDERED: POTASSIUM CHLORIDE 20 MEQ TAB PO ONE (16:10)
== END 2023-12-28 16:49 | disposition home or self-care (01) ==
LOC: ED 10:45
PROVIDERS: Internal Medicine
DX: K52.9 Noninfective gastroenteritis and colitis, unspecified (principal); E87.6 Hypokalemia; R11.2 Nausea with vomiting, unspecified; F17.200 Nicotine dependence, unspecified, uncomplicated; Z88.6 Allergy status to analgesic agent; Z98.890 Other specified postprocedural states; Z90.49 Acquired absence of other specified parts of digestive tract

== ENCOUNTER → 2024-09-16 | Outpatient (CLI) | payer MEDICAID ==
[~2024-09-16] MED LIST changes: +ANTI-DIARRHEAL2 MG PO
[2024-09-16 13:36] LABS: HEMATOCRIT 43.9 % (42.0-52.0); MEAN CORPUSCULAR HGB 30.8 pg (27.0-31.0); MEAN CORPUSCULAR HGB CONC 31.4 g/dl (33.0-37.0); RED BLOOD COUNT 4.48 10*6/uL (4.50-5.90); RED CELL DISTRI WIDTH 11.6 % (0-14.5); WHITE BLOOD COUNT 7.1 10*3/uL (4.8-10.8)
[2024-09-16 14:06] LABS: ALKALINE PHOSPHATASE 86 U/L (46-116); BUN 8 mg/dl (9-23); CHLORIDE 103 mmol/L (98-107); CHOLESTEROL 164 mg/dL (<200); LDL CHOLESTEROL 82 mg/dL (9-159); POTASSIUM 4.4 mmol/L (3.4-5.1); SGPT/ALT 21 U/L (5-49); TOTAL PROTEIN 8.4 gm/dL (6.0-8.0); TRIGLYCERIDES 214 mg/dl (<150)
[2024-09-16 15:41] LABS: VITAMIN D, 25-HYDROXY 27.1 ng/mL (30-100)
== END | disposition home or self-care (01) ==
LOC: LAB 13:14
PROVIDERS: ATTEND Family Medicine
DX: Z12.5 Encounter for screening for malignant neoplasm of prostate (principal); I10 Essential (primary) hypertension; E78.00 Pure hypercholesterolemia, unspecified; I63.9 Cerebral infarction, unspecified; F41.1 Generalized anxiety disorder; G47.00 Insomnia, unspecified

== ENCOUNTER 2024-11-24 11:29 | Emergency (ER) | payer MEDICAID ==
[~2024-11-24] VITALS: Ht 193 cm; Wt 145.1 kg
[~2024-11-24 11:29] MED LIST changes: +AMMONIUM LACTA227 GM T; +AMOX-CLAV 875-1 EACH PO; +CLOPIDOGREL75 MG PO; +DIAMODE2 MG PO; +FLUOXETINE40 MG PO; +HYDRALAZINE HC100 MG PO; +HYDRALAZINE HYD50 MG PO; +HYDROCODONE-AC1 EAC1 PO; +KLOR-CON 88 ME1 PO; +METOPROLOL SUCC50 M1 PO; +NICODERM CQ1 EAC1 T; +NORVASC10 MG PO; +TRAZODONE100 MG PO; +VIBRA-TAB100 MG PO
[2024-11-24 12:29] LABS: BUN 8 mg/dl (9-23); CHLORIDE 102 mmol/L (98-107)
[2024-11-24] MEDS ORDERED: CLINDAMYCIN HC300 MG PO (13:42)
[2024-11-24] MEDS ORDERED: AMOX-CLAV 875-1 EACH PO (13:42)
== END 2024-11-24 13:55 | disposition left against medical advice (07) ==
LOC: ED 11:29
PROVIDERS: Physician Assistant Medical
DX: S91.301A Unspecified open wound, right foot, initial encounter (principal); L03.115 Cellulitis of right lower limb; R70.0 Elevated erythrocyte sedimentation rate; I10 Essential (primary) hypertension; F32.A Depression, unspecified; Z53.29 Procedure and treatment not carried out because of patient's decision for other reasons; Z86.73 Personal history of transient ischemic attack (TIA), and cerebral infarction without residual deficits; Z88.6 Allergy status to analgesic agent; Z79.899 Other long term (current) drug therapy; Z79.82 Long term (current) use of aspirin; Z98.890 Other specified postprocedural states; X58.XXXA Exposure to other specified factors, initial encounter; Y93.89 Activity, other specified; Y92.89 Other specified places as the place of occurrence of the external cause; Y99.8 Other external cause status

== ENCOUNTER → 2025-01-21 | Outpatient (CLI) | payer MEDICAID ==
[~2025-01-21] MED LIST changes: +CLINDAMYCIN HC300 MG PO; +LEVOFLOXACIN750 M2 PO
[2025-01-21 14:28] LABS: MEAN CELL VOLUME 92.1 fl (80.0-94.0); MEAN CORPUSCULAR HGB 28.1 pg (27.0-31.0); MEAN PLATELET VOLUME 9.5 fl (9.6-12.3); NUCLEATED RED BLOOD CELL 0.0 % (0.0-0.0); NUCLEATED RED BLOOD CELL 0.0 10*3/uL (0.0-0.0); PLATELET COUNT AUTOMATED 305.0 10*3/uL (130-400); RED CELL DISTRI WIDTH 13.9 % (0-14.5)
[2025-01-21 14:52] LABS: VITAMIN D, 25-HYDROXY 31.5 ng/mL (30-100)
[2025-01-21 15:01] LABS: BUN 8 mg/dl (9-23); LDL CHOLESTEROL 77 mg/dL (9-159); SGPT/ALT 16 U/L (5-49)
== END | disposition home or self-care (01) ==
LOC: LAB 14:09
PROVIDERS: ATTEND Family Medicine
DX: I10 Essential (primary) hypertension (principal); E55.9 Vitamin D deficiency, unspecified; E78.00 Pure hypercholesterolemia, unspecified; K21.9 Gastro-esophageal reflux disease without esophagitis; G47.00 Insomnia, unspecified; F41.1 Generalized anxiety disorder; E73.0 Congenital lactase deficiency; M86.171 Other acute osteomyelitis, right ankle and foot

== ENCOUNTER → 2025-05-27 | Outpatient (CLI) | payer MEDICAID ==
[2025-05-27 11:38] LABS: MEAN CELL VOLUME 95.2 fl (80.0-94.0); MEAN CORPUSCULAR HGB 30.4 pg (27.0-31.0); MEAN PLATELET VOLUME 9.9 fl (9.6-12.3); NUCLEATED RED BLOOD CELL 0.0 % (0.0-0.0); NUCLEATED RED BLOOD CELL 0.0 10*3/uL (0.0-0.0); PLATELET COUNT AUTOMATED 337.0 10*3/uL (130-400); RED CELL DISTRI WIDTH 12.0 % (0-14.5)
[2025-05-27 11:58] LABS: BUN 8 mg/dl (9-23); CPK 149 U/L (34-171); SGPT/ALT 17 U/L (5-49)
[2025-05-27 12:17] LABS: VITAMIN D, 25-HYDROXY 20.8 ng/mL (30-100)
== END | disposition home or self-care (01) ==
LOC: LAB 10:55
PROVIDERS: ATTEND Family Medicine
DX: I10 Essential (primary) hypertension (principal); E74.9 Disorder of carbohydrate metabolism, unspecified; E55.9 Vitamin D deficiency, unspecified; R53.83 Other fatigue; M79.10 Myalgia, unspecified site